=== PATIENT | female | born 1925 | race Caucasian/White ===

== ENCOUNTER → 2016-08-22 | Outpatient (CLI) | payer MEDICARE ==
[2016-08-22 08:47] LABS: BASO % 0.9 % (0.0-1.0); EOS # 0.2 K/mm3 (0.0-0.50); EOS % 4.1 % (0.0-3.0); LYMPH # 1.2 K/mm3 (1.5-4.5); LYMPH % 23.9 % (24.0-44.0); MEAN CORPUSCULAR HEMOGLOBIN 30.3 pg (27.0-33.0); MEAN CORPUSCULAR HGB CONC 33.2 g/dl (32.0-36.5); MEAN CORPUSCULAR VOLUME 91.2 fl (80.0-96.0); MONO # 0.3 K/mm3 (0.0-0.8); MONO % 6.3 % (0.0-5.0); NEUTROPHILS % 62.8 % (36.0-66.0); WHITE BLOOD COUNT 4.8 K/mm3 (4.0-10.0)
[2016-08-22 09:11] LABS: ALBUMIN 3.7 GM/DL (3.2-5.2); ALBUMIN/GLOBULIN RATIO 1.54 (1.00-1.93); BILIRUBIN,TOTAL 0.5 MG/DL (0.2-1.0); CALCIUM LEVEL 9.1 MG/DL (8.8-10.2); CREATININE FOR GFR 1.2 MG/DL (0.55-1.02); FREE T4 0.92 NG/DL (0.76-1.46); POTASSIUM SERUM 4.3 MEQ/L (3.5-5.1); TOTAL PROTEIN 6.1 GM/DL (6.4-8.2)
== END ==
LOC: M LAB 08:10
PROVIDERS: ATTEND Nurse Practitioner Adult Health
DX: Z51.81 Encounter for therapeutic drug level monitoring (principal); Z79.899 Other long term (current) drug therapy; E78.00 Pure hypercholesterolemia, unspecified; E55.9 Vitamin D deficiency, unspecified

== ENCOUNTER 2016-12-24 17:39 | Observation (INO) | payer MEDICARE ==
[~2016-12-24] VITALS: Ht 157.5 cm; Wt 63.5 kg
[2016-12-24] MEDS ORDERED: ASPI1TAB PO (17:54)
[2016-12-24] MEDS ORDERED: ATOR1TAB19 (17:54)
[2016-12-24] MEDS ORDERED: OXYB5TAB10 (17:54)
[2016-12-24] MEDS ORDERED: FURO20TA2 (17:54)
[2016-12-24] MEDS ORDERED: LUTE6CAP2 PO (17:54)
[2016-12-24] MEDS ORDERED: LISI-542 (17:54)
--- NOTE | 2016-12-24 19:31 | REP ---
Head CT without contrast: History: Syncope. Findings: Digital preliminary manager cafe radiograph is unremarkable. Bone window settings demonstrate an intact bony calvarium. No skull fracture or incidental bony calvarial lesion is seen. There is vascular calcification in the carotid siphons bilaterally. There is diffuse mild to moderate cerebral atrophy and concordant ventricular enlargement. There is no evidence of intracranial hemorrhage. No mass, infarction, extra-axial fluid collection, or midline shift is seen. Impression: Diffuse atrophy and vascular calcification. No acute intracranial abnormality. Signed by Rehtt Bradley MD 12/24/2016 08:28 P
[2016-12-24 19:50] LABS: BASO % 0.6 % (0.0-1.0); EOS # 0.1 K/mm3 (0.0-0.50); LARGE UNSTAINED CELL # 0.1 K/mm3 (0.0-0.4); LARGE UNSTAINED CELL % 1.8 % (0.0-4.0); LYMPH # 1.2 K/mm3 (1.5-4.5); LYMPH % 18.4 % (24.0-44.0); MEAN CORPUSCULAR HEMOGLOBIN 31.3 pg (27.0-33.0); MEAN CORPUSCULAR HGB CONC 33.6 g/dl (32.0-36.5); MONO # 0.5 K/mm3 (0.0-0.8); MONO % 7.6 % (0.0-5.0); NEUTROPHILS # 4.5 K/mm3 (1.8-7.7); NEUTROPHILS % 69.7 % (36.0-66.0); PLATELET COUNT, AUTOMATED 207 k/mm3 (150-450); RED CELL DISTRIBUTION WIDTH 12.8 % (11.5-14.5); WHITE BLOOD COUNT 6.4 K/mm3 (4.0-10.0)
[2016-12-24 19:51] LABS: INR 0.96
[2016-12-24 20:13] LABS: ANION GAP 5 MEQ/L (8-16); BLOOD UREA NITROGEN 46 MG/DL (7-18); CALCIUM LEVEL 9.8 MG/DL (8.8-10.2); CARBON DIOXIDE LEVEL 29 MEQ/L (21-32); CHLORIDE LEVEL 106 MEQ/L (98-107); FREE T4 0.83 NG/DL (0.76-1.46); GLUCOSE, FASTING 96 MG/DL (83-110); MAGNESIUM LEVEL 2.7 MG/DL (1.8-2.4); POTASSIUM SERUM 4.5 MEQ/L (3.5-5.1); SODIUM LEVEL 140 MEQ/L (136-145)
[2016-12-24] MEDS ORDERED: LR 1,000 ML IV SCH (20:30)
[2016-12-24] MEDS ORDERED: LISI-542 PO (20:39)
[2016-12-24] MEDS ORDERED: FURO20TA2 PO (20:39)
[2016-12-24] MEDS ORDERED: ATOR1TAB19 PO (20:39)
[2016-12-24] MEDS ORDERED: OXYB5TAB10 PO (20:39)
[2016-12-24] MEDS ORDERED: ZETI10TA30 PO (20:39)
[2016-12-24] MEDS ORDERED: ACETAMINOPHEN TAB 650MG DOSE (2X325MG) PO PRN (21:15)
[2016-12-24] MEDS: ATORVASTATIN 10 MG TAB PO SCH (23:35)
[2016-12-24] MEDS: oxyBUTYnin 5 MG TAB PO SCH (23:35)
[2016-12-24] MEDS: EZETIMIBE 10 MG TAB (ZETIA) PO SCH (23:36)
[2016-12-24] MEDS: NS 1,000 ML IV SCH (23:40)
[2016-12-25 04:10] VITALS: BP 138/62
[2016-12-25 05:43] LABS: CALCIUM LEVEL 9.1 MG/DL (8.8-10.2); CREATININE FOR GFR 1.56 MG/DL (0.55-1.02); GLOMERULAR FILTRATION RATE 33.3 (>32); POTASSIUM SERUM 4.1 MEQ/L (3.5-5.1)
[2016-12-25] MEDS: HEPARIN SOD (PORCINE) 5000 UNITS/ML VIAL SC SCH ×3 (05:46→20:43)
[2016-12-25] MEDS: NS 1,000 ML IV SCH ×3 (05:46→20:44)
--- NOTE | 2016-12-25 06:41 | HPE ---
DATE OF ADMISSION: 12/24/2016 PRIMARY CARE PROVIDER: Jackie Duke NP ATTENDING PHYSICIAN: Hyun Jonh MD CHIEF COMPLAINT: Syncope episode. HISTORY OF PRESENT ILLNESS: The patient is an 89-year-old white female with history of hypertension, dyslipidemia, presented to the emergency room (ER) for evaluation of a syncope episode. History is provided herself. Per the patient, last year, she had one episode of syncope and she came to the ER and evaluated, which was negative and she was discharged home directly from the ER. Since then , she was doing fine until this past Thursday. She works in a gift shop in the hospital here. She stated Thursday at noontime she was suddenly feeling lightheaded, but she did not pass out. She was sitting down and then, gradually her dizziness resolved itself. Today, she went outside and passed out in the parking lot suddenly. Before it happened, she was feeling very lightheaded again and after she woke she was not confused and she did not lose her bowel or urine control during the episode. Also, there is no seizure activity. After that 911 was called. She was brought to the ER for further evaluation. In the ER, her initial workup was insignificant, including head CT scan and the only finding found she has increased a little bit of the creatinine up to 2.0 from her baseline at 1.2. REVIEW OF SYSTEMS: Denies fever. No chills. No headache. No blurry vision. Positive lightheadedness. No chest pain. No nausea. No vomiting. No tingling , numbness or weakness in the arms or lower extremities. All other systems reviewed but negative. PAST MEDICAL HISTORY: 1. Hypertension. 2. Dyslipidemia. PAST SURGICAL HISTORY: Right breast cancer surgery. ALLERGIES: NO KNOWN ALLERGIES. FAMILY HISTORY: Both parents many years ago. No history of heart attack or stroke or syncope. MEDICATIONS: - lisinopril 5 mg by mouth daily - Lasix 20 mg by mouth daily - atorvastatin 10 mg by mouth daily - aspirin 81 mg by mouth daily - vitamins 1 tablet daily - oxybutynin 5 mg by mouth daily PHYSICAL EXAMINATION: VITAL SIGNS: Temperature is 97.4. Pulse initially 98, down to 68 and blood pressure initially 176/61, down to 130/63 and oxygen saturation is 97% on room air. GENERAL: She is awake, alert, oriented times three. She is not in acute distress. HEENT: Atraumatic. Pupils equal, round and reactive to light. No jaundice. Extraocular muscles intact. Ears, nose and throat normal without any ulcer or inflammation. NECK: No jugular venous distention (JVD). No bruits. LUNGS: Clear. No crackles. No wheezing. HEART: S1, S2. Regular. No murmur. ABDOMEN: Soft. Bowel sounds positive. Nontender. LOWER EXTREMITIES: No edema in bilateral lower extremities. NEUROLOGIC: Nonfocal. Cranial nerves II-XII intact. SKIN: No rash. PSYCHOLOGICAL: No acute psychosis. DIAGNOSTIC/LABORATORY STUDIES: Include the following: CBC: WBC 6.4, hemoglobin and hematocrit 12.7/37.7, platelets 207. Sodium 140, potassium 4.5, chloride 106, bicarbonate 29, BUN 46, creatinine 2.0, glucose is 96. Liver function test was normal. TSH was normal. Head CT was negative. EKG: Normal sinus rhythm with some PACs. IMPRESSION: 1. Recurrent syncope episode. 2. Hypertension. 3. Dyslipidemia. PLAN: Patient presented with a syncope episode. Etiology is not clear. Need to rule out arrhythmia. He will be admitted for observation to progressive care unit (PCU). ER attending has scheduled for carotid Doppler and echocardiogram, which will be done tomorrow. He has a mild increased creatinine that could be due to dehydration. We will hold her Lasix and lisinopril. We will gentle hydrate her overnight. We will repeat a basic metabolic profile tomorrow. GARY
[2016-12-25 07:30] VITALS: BP 141/64
--- NOTE | 2016-12-25 07:44 | REP ---
Clinical: Syncope . Technique: Sneed scale and color Doppler evaluation using linear high frequency transducer Findings: Two-dimensional sneed scale and color images demonstrate mixed atheromatous plaquing extending along the common carotid arteries to the carotid bulbs. Normal laminar flow and no appreciable narrowing identified. Color Doppler interrogation demonstrates normal arterial wave patterns and velocities with mild spectral broadening. Normal flow direction is appreciated in the bilateral vertebral arteries. RIGHT (cm/s) LEFT (cm/s) ICA peak systolic velocity 91.7 96.2 ICA diastolic velocity 22.1 21.4 ECA peak systolic velocity 116.1 41.4 CCA peak systolic velocity 106.6 111.8 ICA/CCA ratio 0.86 0.86 Impression: No hemodynamically significant areas of narrowing or stenosis appreciated. Based on set standards narrowing falls within the less than 50% range. Signed by Flavio Sandoval MD 12/25/2016 07:35 A
[2016-12-25] MEDS: oxyBUTYnin 5 MG TAB PO SCH ×2 (08:46→20:43)
[2016-12-25] MEDS: ASPIRIN 81 MG ENTERIC TAB PO SCH (08:46)
--- NOTE | 2016-12-25 09:28 | IPNPDOC ---
Subjective Date Seen The patient was seen on 12/25/16. Subjective Chief Complaint/HPI The patient is a 89-year-old female admitted with a reason for visit of Syncope. General: Denies: ROS Unobtainable, Chills, Night Sweats, Fatigue, Malaise, Normal Appetite, Other Symptoms Constitutional: Denies: Chills, Fever, Malaise, Night Sweats, Weakness, Fatigue , Weight Loss, Lethargy, Other Eyes: Denies: Pain, Vision change, Conjunctivae inflammation, Eyelid inflammation, Redness, Other ENT: Denies: Head Aches, Ear Pain, Dysphagia, Sinus Congestion, Post Nasal Drip , Sore Throat, Epistaxis, Other Symptoms Skin: Denies: Rash, Lesions, Jaundice, Bruising, Itching, Dry, Breakdown, Nail Changes, Other Pulmonary: Denies: Dyspnea, Cough, Pleuritic Chest Pain, Other Symptoms Cardiovascular: Denies: Chest Pain, Palpitations, Orthopnea, Paroxysmal Noc. Dyspnea, Edema, Lt Headedness, Other Symptoms Gastrointestinal: Denies: Nausea, Vomiting, Abdominal Pain, Diarrhea, Constipation, Melena, Hematochezia, Other Symptoms Genitourinary: Denies: Dysuria, Frequency, Incontinence, Hematuria, Retention, Other Symptoms Objective Physical Examination General Exam: Positive: Alert, Cooperative, No Acute Distress Eye Exam: Positive: PERRLA, Conjunctiva & lids normal, EOMI Chest Exam: Positive: Clear to auscultation, Normal air movement Heart Exam: Positive: Rate Normal Telemetry: Positive: No significant arrhythmia Abdomen Exam: Positive: Normal bowel sounds, Soft, Negative: Tenderness Psych Exam: Positive: Oriented x 3 Assessment /Plan Problems (1) Syncope Status: Acute Response to Treatment: Progressing Discussed With: Patient Problem Specific Plan: Monitor Clinically, Repeat Tests Problem Text: States one episode of near syncope 2 days ago, one episode syncope yesterday. Continue telemetry monitoring, carotids pending, 2d echo pending. (2) Acute on chronic renal failure Status: Acute Response to Treatment: Improving Problem Text: Does admit to poor PO intake. Continue with IV fluids. (3) HTN (hypertension) Status: Chronic Discussed With: Patient Problem Specific Plan: Monitor Clinically (4) Dyslipidemia Status: Chronic Discussed With: Patient Problem Specific Plan: Monitor Clinically Plan/VTE VTE Prophylaxis Ordered?: Yes (heparin) Plan IVF: Continue Diet: Continue Current Activity: Continue Current Therapy: PT Diagnostics: Repeat Labs in AM, TTE Anticipated Discharge: Home, Home With Services VS, I&O, 24H, Larisa Vital Signs/I&O Vital Signs Date Time Temp Pulse Resp B/P (MAP) Pulse Ox O2 Delivery O2 Flow Rate FiO2 12/25/16 07:30 98.4 63 20 141/64 (89) 97 Room Air I&O- Last 24 Hours up to 6 AM 12/25/16 05:59 Intake Total 400 ml Output Total 350 ml Balance 50 ml Laboratory Data 24H LABS Laboratory Tests 2 12/24/16 19:20: White Blood Count 6.4, Red Blood Count 4.06, Hemoglobin 12.7, Hematocrit 37.7, Mean Corpuscular Volume 93.0, Mean Corpuscular Hemoglobin 31.3, Mean Corpuscular Hemoglobin Concent 33.6, Red Cell Distribution Width 12.8, Platelet Count 207, Neutrophils (%) (Auto) 69.7H, Lymphocytes (%) (Auto) 18.4L, Monocytes (%) (Auto) 7.6H, Eosinophils (%) (Auto) 2.0, Basophils (%) (Auto) 0.6 , Neutrophils # (Auto) 4.5, Lymphocytes # (Auto) 1.2L, Monocytes # (Auto) 0.5, Eosinophils # (Auto) 0.1, Basophils # (Auto) 0.0, Large Unclassified Cells % 1.8 , Large Unclassified Cells # 0.1, Prothrombin Time 12.9, Prothromb Time International Ratio 0.96, Activated Partial Thromboplast Time 29.4, Urine Appearance CLEAR, Urine Color YELLOW, Urine pH 5.0, Urine Specific [place] 1.010 , Urine Protein NEGATIVE, Urine Glucose (UA) NEGATIVE, Urine Ketones NEGATIVE, Urine Urobilinogen 0.2, Urine Bilirubin NEGATIVE, Urine Leukocyte Esterase 2+H, Urine Blood NEGATIVE, Urine Nitrite NEGATIVE, Urine WBC (Auto) 10H, Urine RBC ( Auto) 4H, Urine Hyaline Casts (Auto) 4, Urine Bacteria (Auto) 1+H, Urine Squamous Epithelial Cells 3, Urine Amorphous Sediment SMALLH, Urine Sperm (Auto ) , Anion Gap 5L, Glomerular Filtration Rate 25.0L, Blood Urea Nitrogen 46H, Creatinine 2.00H, Sodium Level 140, Potassium Level 4.5, Chloride Level 106, Carbon Dioxide Level 29, Calcium Level 9.8, Total Creatine Kinase 84, Magnesium Level 2.7H, Creatine Kinase MB 1.0, Creatine Kinase MB Relative Index 1.19, Troponin I < 0.02, Thyroid Stimulating Hormone (TSH) 3.100, Free Thyroxine 0.83 12/24/16 19:21: Lactic Acid Level 0.8 12/24/16 19:37: Bedside Glucose (Misc Panel) 98 12/25/16 01:09: Total Creatine Kinase 80, Creatine Kinase MB 1.1, Creatine Kinase MB Relative Index 1.37, Troponin I < 0.02 12/25/16 05:01: Anion Gap 7L, Glomerular Filtration Rate 33.3, Blood Urea Nitrogen 40H, Creatinine 1.56H, Sodium Level 145, Potassium Level 4.1, Chloride Level 113H, Carbon Dioxide Level 25, Calcium Level 9.1 CBC/BMP Laboratory Tests 12/24/16 19:20 Red Blood Count 4.06, Mean Corpuscular Volume 93.0, Mean Corpuscular Hemoglobin 31.3, Mean Corpuscular Hemoglobin Concent 33.6, Red Cell Distribution Width 12.8 , Neutrophils (%) (Auto) 69.7 H, Lymphocytes (%) (Auto) 18.4 L, Monocytes (%) ( Auto) 7.6 H, Eosinophils (%) (Auto) 2.0, Basophils (%) (Auto) 0.6, Neutrophils # (Auto) 4.5, Lymphocytes # (Auto) 1.2 L, Monocytes # (Auto) 0.5, Eosinophils # (Auto) 0.1, Basophils # (Auto) 0.0, Calcium Level 9.8, Total Creatine Kinase 84 12/25/16 05:01 Calcium Level 9.1 Microbiology Microbiology 12/24/16 Urine Culture, Received Pending FRANCIS BALDERAS MD Dec 25, 2016 09:28
[2016-12-25 12:00] VITALS: BP 115/60
[2016-12-25 15:40] VITALS: BP 123/60
[2016-12-25 20:00] VITALS: BP 110/74
[2016-12-25] MEDS: EZETIMIBE 10 MG TAB (ZETIA) PO SCH (20:43)
[2016-12-25] MEDS: ATORVASTATIN 10 MG TAB PO SCH (20:43)
[2016-12-25 23:59] VITALS: BP 120/58
[2016-12-26 04:00] VITALS: BP 112/59
[2016-12-26] MEDS: HEPARIN SOD (PORCINE) 5000 UNITS/ML VIAL SC SCH ×4 (05:52→21:03)
--- NOTE | 2016-12-26 07:22 | ECGEPIP ---
Stationary ECG Study [facility] - ED Test Date: 2016-12-24 Pat Name: KIARA QUINTERO Department: Room: [place] [address] Gender: F [employer] Of [employer]: josep : 1925 Requested By: GRISEL GONZALEZ Order Number: [id number] Reading MD: Carmel Lynn Measurements Intervals [place] Rate: 59 P: 61 ME: 176 QRS: 9 QRSD: 72 T: 52 QT: 401 QTc: 399 Interpretive Statements SINUS BRADYCARDIA NSTTW ABNORMALITY DECREASED RATE 08/13/15 Electronically Signed On 12-26-2016 7:21:38 EDT by Carmel Lynn
[2016-12-26] MEDS: NS 1,000 ML IV SCH (07:55)
[2016-12-26 08:00] VITALS: BP 134/60
[2016-12-26 08:09] LABS: MEAN CORPUSCULAR HEMOGLOBIN 31.7 pg (27.0-33.0); MEAN CORPUSCULAR HGB CONC 33.4 g/dl (32.0-36.5); RED CELL DISTRIBUTION WIDTH 13.3 % (11.5-14.5); WHITE BLOOD COUNT 5.3 K/mm3 (4.0-10.0)
[2016-12-26] MEDS: oxyBUTYnin 5 MG TAB PO SCH ×2 (08:37→21:03)
[2016-12-26] MEDS: ASPIRIN 81 MG ENTERIC TAB PO SCH (08:37)
--- NOTE | 2016-12-26 09:27 | IPN ---
DATE: 12/26/2016 This is an 89-year-old female seen at bedside. No overnight issues reported. She is resting comfortably. She has had her breakfast and been to the restroom this morning already once. She denies chest pain, shortness of breath, palpitations. No nausea, vomiting. Bowel movements are good and she is voiding fine. OBJECTIVE: Temperature is 98.8, pulse 73, respiratory rate is 18, blood pressure (BP) 134/60 and SPO2 is 97% on room air. General: The patient appears to be in no acute distress. She is alert, oriented, pleasant. HEENT: Unremarkable. Lungs: Clear. Heart: Regular rate and rhythm. Abdomen: Soft. Extremities: No edema, no calf tenderness. LABORATORY DATA: White count is 5.3, hemoglobin 10.7 (a 2 point drop from her admission when it was 12.7) and platelets are 165,000. Chemistries pending at this time. Physical therapy (PT) evaluation done yesterday with home safety evaluation. The patient passed without any difficulty. Currently awaiting the echocardiogram report which is marked as completed as of yesterday evening. Carotid ultrasound with no hemodynamically significant areas of narrowing or stenosis appreciated, based on set standards narrowing falls less than 50%. ASSESSMENT/PLAN: 1. Syncope, resolved. Based on the patient's symptomatology, this may have been a result of vasovagal versus some mild dehydration. She has maintained good oral intake. Carotids are unremarkable. Telemetry is unremarkable. Her 2-D echo is pending. However, I may go ahead and discharge her today and she can followup with these results as an outpatient if she is doing well later today. 2. Acute kidney injury/renal failure. She does appear to be improving and producing good urine. Will repeat her BUN and creatinine today. I did go ahead and discontinue her IV fluids since she does appear to be hemodilutional based on her hemoglobin/hematocrit (H/H) drop. 3. Mild anemia with 2 point drop in her hemoglobin. This is likely related to hemodilution with the IV fluids, which we have discontinued. Will repeat H/H on her at noon. I did have a discussion of the importance of cancer screening and colonoscopy which she states she has never done, but I will defer this her primary care provider, Jackie Duke. 4. Hypertension, stable. 5. Dyslipidemia, chronic. Continue current medical management plan per her primary care provider. 6. Deep vein thrombosis (DVT) prophylaxis with heparin. DISPOSITION: Anticipate discharge home later today or tomorrow. I did add on an occult stool check as well as repeat H/H and if she is doing well at noon will plan on home discharge and appropriate followup as an outpatient. GARY
[2016-12-26 09:38] LABS: CALCIUM LEVEL 9.3 MG/DL (8.8-10.2); CREATININE FOR GFR 1.3 MG/DL (0.55-1.02); GLOMERULAR FILTRATION RATE 41.1 (>32); PHOSPHORUS LEVEL 2.4 MG/DL (2.5-4.9)
[2016-12-26 09:45] LABS: POTASSIUM SERUM 5.3 MEQ/L (3.5-5.1)
[2016-12-26 12:00] VITALS: BP 129/60
[2016-12-26] MEDS ORDERED: SLF 3 ML SYR IV PRN (15:30)
[2016-12-26 15:41] LABS: CALCIUM LEVEL 8.5 MG/DL (8.8-10.2); CREATININE FOR GFR 1.15 MG/DL (0.55-1.02); GLOMERULAR FILTRATION RATE 47.3 (>32); POTASSIUM SERUM 4.2 MEQ/L (3.5-5.1)
[2016-12-26 16:00] VITALS: BP 149/66
[2016-12-26 20:00] VITALS: BP 117/58
[2016-12-26] MEDS: ATORVASTATIN 10 MG TAB PO SCH (21:03)
[2016-12-26] MEDS: EZETIMIBE 10 MG TAB (ZETIA) PO SCH (21:03)
[2016-12-26] MEDS: SLF 3 ML SYR IV SCH (21:04)
[2016-12-26 23:15] VITALS: BP 133/62
[2016-12-27 06:00] VITALS: BP_SYST 139; BP_SYST 141; BP_DIAS 63; BP_DIAS 64
[2016-12-27] MEDS: HEPARIN SOD (PORCINE) 5000 UNITS/ML VIAL SC SCH (06:05)
[2016-12-27] MEDS: SLF 3 ML SYR IV SCH ×2 (06:06→10:31)
[2016-12-27 10:00] VITALS: BP 144/67
[2016-12-27] MEDS: oxyBUTYnin 5 MG TAB PO SCH (10:30)
[2016-12-27] MEDS: ASPIRIN 81 MG ENTERIC TAB PO SCH (10:30)
--- NOTE | 2016-12-27 12:08 | ECHO ---
DATE OF PROCEDURE: 12/25/2016 REFERRING PHYSICIAN: Dr. Dari Pinon INDICATIONS: Syncope, heart murmur, unspecified. HEIGHT: 158 cm WEIGHT: 59 kg 2D MEASUREMENTS: Aortic root: 2.8 cm Left atrium: 3.0 cm Ventricular septum: 1.28 cm Posterior wall: 1.26 cm Left ventricle diastole: 2.9 cm LVOT: 1.9 cm Inferior vena cava: 1.6 cm DOPPLER MEASUREMENTS; Mild aortic regurgitation. No aortic stenosis. Aortic valve velocity: 163 cm/s LVOT velocity: 125 cm/s LVOT VTI: 29.2 cm Trace mitral regurgitation. Mitral E velocity: 102 cm/s Mitral A velocity: 124 cm/s Mitral deceleration time: 264 ms Very mild tricuspid regurgitation. Pulmonary artery systolic pressure: 33 mmHg (pulmonary acceleration time method). Mitral annular tissue Doppler. E-prime septal: 6.3 cm/s E-prime lateral: 7.1 cm/s DESCRIPTION: Rhythm was sinus. Image quality was fair. No pericardial effusion. This is a 2D, M-mode, color flow Doppler and pulse wave Doppler examination and included mitral annular tissue Doppler. CONCLUSIONS: 1. Very mild concentric left ventricular hypertrophy. No regional LV wall motion abnormalities. Normal LV systolic function. LVEF 70% by visual estimate. Grade 1 LV diastolic dysfunction (impaired relaxation filling pattern). 2. Mild aortic valve sclerosis of a 3-cuspid aortic valve. No aortic stenosis. Mild aortic regurgitation. 3. Suggestive of very mild elevation of pulmonary artery systolic pressure. 4. Septal contact region involving the distal portion of the anterior mitral leaflet. Trace mitral regurgitation.
--- NOTE | 2016-12-27 17:07 | DSES ---
DATE OF ADMISSION: 12/24/2016 DATE OF DISCHARGE: 12/27/2016 PRIMARY CARE PROVIDER: Jackie Duke FINAL DIAGNOSES: 1. Syncope. 2. Acute kidney injury. 3. Anemia. 4. Hypertension. 5. Dyslipidemia. HISTORY OF PRESENT ILLNESS: This is an 89-year-old female patient with a history of hypertension, dyslipidemia, who presented to the emergency room for evaluation of syncope episode. History is provided by the patient. As per patient, last year she had one episode of syncope and came to the emergency department and evaluation was negative and was discharged home from the emergency department. Since then, she has been doing fine until the day of admission. 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 She was sitting down and then gradually her dizziness resolved itself. Today, on the day of admission, the patient went outside and passed out suddenly in the parking lot. Before that happened, the patient was feeling very lightheaded. After she woke up she was not confused. No tongue biting. Did not have urinary or bowel incontinence. No seizure activity. 911 was called. The patient was brought to the emergency room for evaluation. CT scan was negative. Lab work was negative except for a creatinine of 2, baseline 1.2. HOSPITAL COURSE: The patient was admitted to the hospital. IV fluids were given. The patient's electrolytes were monitored. Kidney function improved with IV fluids. Echocardiogram was done. Telemetry was observed. Physical therapy (PT) was done. The patient tolerated physical therapy. I have discussed echo report with Dr. Wall. Hyperdynamic ventricular function with aortic sclerosis, possibly secondary to dehydration and vasovagal. Kidney function improved after hydration. The patient's hemoglobin dropped after some IV hydration, possibly dilutional. Repeat hemoglobin and hematocrit remained stable. The patient will need outpatient followup and possible colonoscopy with primary care provider. Hypertension remained stable. Continue current medications. The patient's workup has been negative with negative telemetry and the patient tolerated oral. Passed physical therapy. Ready for discharge for further care as an outpatient. VITAL SIGNS: Temperature 98.4, pulse 74, respirations 18, blood pressure 144/67, pulse oximetry 96% on room air. GENERAL: The patient is alert and oriented times three. No acute distress. HEENT: Normocephalic, atraumatic. PULMONARY: Bilaterally clear to auscultation. CARDIAC: Regular rate and rhythm. Normal S1, S2. ABDOMEN: Soft, nontender, nondistended. Positive bowel sounds. EXTREMITIES: No edema in bilateral lower extremities. LABORATORY DATA: WBC 5.3, hemoglobin and hematocrit 10.9/32.7, platelets 165. Chemistry: Sodium 149, potassium 4.2, chloride 118, bicarbonate 23, BUN 18, creatinine 1.15. DISCHARGE MEDICATIONS: - aspirin 81 mg by mouth daily - Lipitor 10 mg by mouth at night - Zetia 10 mg by mouth at night - Lasix 20 mg by mouth daily as needed - Lisinopril 5 mg by mouth daily - Oxybutynin 5 mg by mouth twice a day - Lutein 6 mg by mouth daily DISCHARGE INSTRUCTIONS: The patient is instructed to followup with primary care provider in 7 days. Consider cardiology consultation as an outpatient for potential loop recorder. Return to the hospital if symptoms recur. Daily weights. Oral hydration. Time spent arranging the patient's care and discharging the patient was 35 minutes.
== END 2016-12-27 12:23 | disposition home or self-care (01) ==
LOC: M ED 17:39 → M ED INP 21:10 → M PCU 12-25 04:17 → M MSPAV 12-26 23:17
PROVIDERS: ADMIT Hospitalist; ATTEND Internal Medicine
DX: R55 Syncope and collapse (principal); N17.9 Acute kidney failure, unspecified; D64.9 Anemia, unspecified; I10 Essential (primary) hypertension; E78.5 Hyperlipidemia, unspecified; Z79.82 Long term (current) use of aspirin; Z79.899 Other long term (current) drug therapy; Z85.3 Personal history of malignant neoplasm of breast; R06.02 Shortness of breath
CPT/HCPCS: 36415; 70450; 80069; 81001; 82550; 82553; 83605; 83735; 83880; 84439; 84443; 84484; 85014; 85018; 85025; 85027; 85610; 85730; 87086; 93005; 93041; 93306; 93880; 94760; 96360; 96361; 96372; 97161; 99285; G0378

== ENCOUNTER → 2017-03-09 | Outpatient (CLI) | payer MEDICARE ==
[~2017-03-09] MED LIST: ASPI1TAB PO; ATOR1TAB19; ATOR1TAB19 PO; FURO20TA2; FURO20TA2 PO; LISI-542; LISI-542 PO; LUTE6CAP2 PO; OXYB5TAB10; OXYB5TAB10 PO; ZETI10TA30 PO
[2017-03-09 14:42] LABS: MEAN CORPUSCULAR HEMOGLOBIN 30.8 pg (27.0-33.0); MEAN CORPUSCULAR HGB CONC 32.4 g/dl (32.0-36.5); MEAN CORPUSCULAR VOLUME 94.9 fl (80.0-96.0); RED CELL DISTRIBUTION WIDTH 12.7 % (11.5-14.5); WHITE BLOOD COUNT 5.3 K/mm3 (4.0-10.0)
[2017-03-09 15:14] LABS: ALBUMIN 3.8 GM/DL (3.2-5.2); ALBUMIN/GLOBULIN RATIO 1.41 (1.00-1.93); BILIRUBIN,TOTAL 0.4 MG/DL (0.2-1.0); CALCIUM LEVEL 9.5 MG/DL (8.8-10.2); CREATININE FOR GFR 1.47 MG/DL (0.55-1.02); FREE T4 0.84 NG/DL (0.76-1.46); GLOMERULAR FILTRATION RATE 35.6 (>32); POTASSIUM SERUM 4.5 MEQ/L (3.5-5.1); TOTAL PROTEIN 6.5 GM/DL (6.4-8.2)
== END ==
LOC: M LAB 13:25
PROVIDERS: ATTEND Nurse Practitioner Adult Health
DX: E55.9 Vitamin D deficiency, unspecified (principal); I10 Essential (primary) hypertension; E78.00 Pure hypercholesterolemia, unspecified; M81.0 Age-related osteoporosis without current pathological fracture; Z51.81 Encounter for therapeutic drug level monitoring; Z79.899 Other long term (current) drug therapy